=== PATIENT | male | born 1990 | race Caucasian/White ===

== ENCOUNTER 2016-11-18 15:48 | Emergency (ER) | payer OTHER ==
[2016-11-18 16:00] VITALS: BP 139/65; PULSE 80; RESP 16; TEMP 97.7; O2SAT 98
--- NOTE | 2016-11-18 16:22 | UCPHY ---
H & P Patient Type: New Chief Complaint Nursing Narrative: C/o confusion and PARRA after hitting head while snowboarding today approx 12. Pt states he was wearing helmet. Denies LOC , vision changes, nausea, c spine tenderness upon palpation. Time Seen by Provider: 11/18/16 16:02 HPI/ROS: CC: fall while hitting head while snowboarding HPI: This is a 25-year-old male who took a bad fall approximately 3 hours ago. Was last with the day while he was snowboarding. He did not go over jump nor getting any air off of a mobile. Was witnessed by his girlfriend who saw him fall backward and the caught edge and fell to the ground striking his head. Of note, he actually remembers the whole thing it was not knocked out. He states he certainly stunned. It was last with a day, so thereafter just can' t take it very easy on the way down. He is not really sure if he would bothered snowboarding thereafter as impact was pretty hard. They collected belongings, [place]. However he felt a little out of sorts and did feel like he could pay as well as the potential disease should thereby he turned over the will to his girlfriend. He has full recall of the event. Mechanism of injury was moderate, not high forces, he has no neck pain, no fluid from the ears or nose no diplopia nor amnesia He continues to have some trouble processing thus he came in for evaluation ROS: Constitutional - feeling well before the fall Head no injury or hematoma. had helmet helmet intact Eyes - no diplopia, blurred vision. ENT - no earache, no fluid from ear. No fluid from nose. No facial injury Neck: no pain or decreased ROM Thorax did not injury to chest or ribs or spine, no shortness of breath Abdominal - denies any abdomen, or back injury. No nausea. Musculoskeletal - no joint or muscle pain. Integument - no lacerations Neurological - no headache, numbness, tingling, or paresthesias. No focal motor weakness. No amnesia or LOC. No fluid from ear or nose 10 point ROS otherwise negative Source: Patient Exam Limitations: No limitations - Personal History Current Tetanus Diphtheria and Acellular Pertussis (TDAP): Yes Tetanus Vaccine Date: within 10 yrs - Medical/Surgical History Hx Asthma: No Hx Chronic Respiratory Disease: No Hx Diabetes: No Hx Cardiac Disease: No Hx Renal Disease: No Hx Cirrhosis: No Hx Alcoholism: No Hx HIV/AIDS: No Hx Splenectomy or Spleen Trauma: No Other PMH: Smokes marijuana - Family History Significant Family History: No pertinent family hx - Social History Smoking Status: Never smoked Alcohol Use: Occasionally Drug Use: None - Physical Exam Exam: Constitutional: Well-nourished, well-developed, no acute distress. [No odor of alcohol] Neck: Nontender without step off, with full active range of motion without pain Eyes: Pupils equal and reactive. Funduscopic exam normal ENT: Ears are without hemotympanum. Mouth exam, atraumatic. Chest: No signs of splinting respirations. Back: Nontender thoracic and lumbar sacral spine Musculoskeletal: Moves all extremities without difficulty. No joint swelling. No ecchymosis. No deformities. Skin: No observed abrasions or lacerations. Skin is warm and dry. Normal motor and sensation Neuro: Alert and oriented with a GCS of 15. No acute distress. No headache. Psych: Normal mood and affect. Constitutional: Initial Vital Signs Temperature (C) 36.5 C 11/18/16 15:57 Heart Rate 80 11/18/16 15:57 Respiratory Rate 16 11/18/16 15:57 Blood Pressure 139/65 H 11/18/16 15:57 O2 Sat (%) 98 11/18/16 15:57 O2 Delivery Mode Room Air Allergies/Adverse Reactions: dextromethorphan HBr [From Supress DX] Allergy (Unknown, Verified 11/18/16 16:00 ) Unknown guaifenesin [From Supress DX] Allergy (Unknown, Verified 11/18/16 16:00) Unknown phenylephrine [From Supress DX] Allergy (Unknown, Verified 11/18/16 16:00) Unknown Home Medications: Medication Instructions Recorded NK [No Known Home Meds] 11/18/16 Medical Decision Making Differential Diagnosis: Differential Includes but is not limited to: Concussion, head injury, subdural hematoma, epidural hematoma, intraparenchymal hemorrhage, subarachnoid hemorrhage. C-spine cleared by nexus criteria By way of the nexus as well as a [place] head injury rules does not meet criteria for CT scan. I have explained to him the low but not 0 risk of these scores as well as the potential harm from CT scanning. He should be followed closely at home rest, less expect gradual improvement in the next few days. Departure - Departure Disposition: Home, Routine, Self-Care Clinical Impression: Minor head injury without loss of consciousness Qualifiers: Qualifier Code: (S09.90XA) Unspecified injury of head, initial encounter Concussion Qualifiers: Qualifier Code: (S06.0X0A) Concussion without loss of consciousness, initial encounter Condition: Good Instructions: Concussion (ED), Head Injury (ED) Additional Instructions: For the next 24 hours, awakened every 3 hours by someone to check on you. Take Tylenol or ibuprofen as necessary. No work for 3 days Brain rest equals no texting her computer work. Your allowed to watch [place] movie classic or chick flicks In 3 days, see her family doctor if not 100% okay In 1 week start resuming, gradually, return to normal at like activity over the next 2 weeks. Referrals: NONE *PRIMARY CARE P,. [Primary Care Provider] - As per Instructions - PQRS PQRS Measurement: Unremarkable
== END 2016-11-18 16:57 | disposition home or self-care (01) ==
LOC: CED 15:48
DX: S06.0X0A Concussion without loss of consciousness, initial encounter (principal); Y93.23 Activity, snow (alpine) (downhill) skiing, snowboarding, sledding, tobogganing and snow tubing; V00.311A Fall from snowboard, initial encounter; Y92.828 Other wilderness area as the place of occurrence of the external cause; Y99.8 Other external cause status
CPT/HCPCS: 99204-PO; G0463-PO